=== PATIENT | female | born 1970 | race Caucasian/White ===

== ENCOUNTER 2021-06-20 11:49 | Emergency (ER) | payer OTHER ==
--- NOTE | 2021-06-20 12:07 | ERPHSYRPT ---
- History of Present Illness Time Seen by Provider: 06/20/21 12:20 Source: patient Exam Limitations: no limitations Physician History: Patient is a 50-year-old female presents to emergency department for evaluation of scratches to both hands caused by cats. 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 Injury occurred just prior to arrival. Patient has multiple superficial appearing scratches to both hands. No blunt trauma. Tetanus is up-to-date. Patient does not complain of pain. Patient is just concerned about the possibility of cat scratch disease. Symptoms are mild in intensity. No specific worsening improving factors. Patient is otherwise healthy. She voices no other complaints or concerns at this time. Occurred: just prior to arrival Method of Injury: other (Cat scratch) Quality: other Severity of Pain-Max: moderate Severity of Pain-Current: mild Extremities Pain Location: hand: left Modifying Factors: Improves With: nothing Associated Symptoms: none Allergies/Adverse Reactions: Penicillins Allergy (Verified 06/20/21 12:21) - Review of Systems Constitutional: No Symptoms, No Fever, No Chills Eyes: No Symptoms Ears, Nose, & Throat: No Symptoms Respiratory: No Symptoms, No Cough, No Dyspnea Cardiac: No Symptoms, No Chest Pain, No Edema, No Syncope Abdominal/Gastrointestinal: No Symptoms, No Abdominal Pain, No Nausea, No Vomiting, No Diarrhea Genitourinary Symptoms: No Symptoms, No Dysuria Musculoskeletal: No Symptoms, No Back Pain, No Neck Pain Skin: No Symptoms, No Rash Neurological: No Symptoms, No Dizziness, No Focal Weakness, No Sensory Changes Psychological: No Symptoms Endocrine: No Symptoms Hematologic/Lymphatic: No Symptoms Immunological/Allergic: No Symptoms All Other Systems: Reviewed and Negative - Nursing Vital Signs Nursing Vital Signs: Initial Vital Signs Temperature 97.2 F 06/20/21 12:17 Pulse Rate 96 H 06/20/21 12:17 Blood Pressure 139/94 06/20/21 12:17 O2 Sat by Pulse Oximetry 96 06/20/21 12:17 Pain Scale Pain Intensity 2 - Physical Exam General Appearance: no apparent distress, alert Eyes, Ears, Nose, Throat Exam: normal ENT inspection, TMs normal, pharynx normal, moist mucous membranes Neck Exam: normal inspection, non-tender, supple Cardiovascular/Respiratory Exam: chest non-tender, normal breath sounds, regular rate/rhythm, no respiratory distress Abdominal Exam: non-tender, No guarding Back Exam: normal inspection, No vertebral tenderness Shoulder Exam: normal inspection, non-tender Elbow/Forearm Exam: normal inspection, non-tender, no evidence of injury Wrist Exam: normal inspection, non-tender, no evidence of injury, normal ROM Hand Exam: non-tender (Multiple superficial scratches observed around the dorsum of the hands near the thumbs. No lacerations. All digits are neurovascular intact distally. Compartments are soft. Cap refill less than 2 seconds. Radial pulses palpable), No asymmetry, No nail injury, No stiffness, No swelling Neuro/Tendon Exam: normal sensation, normal motor functions, normal tendon functions Mental Status Exam: alert, oriented x 3, cooperative Skin Exam: normal color, warm, dry SpO2 Interpretation: normal SpO2: 96 O2 Delivery: Room Air - Course Nursing assessment & vital signs reviewed: Yes - Progress Progress: improved Progress Note: Patient presents to our ED with multiple superficial scratches on her hands due to a cat. Patient is allergic to penicillin. A prescription for clindamycin was forwarded to patient's pharmacy in the event she develops symptoms. Tetanus up-to-date. No indication for imaging. Patient otherwise feels well. She voices no other complaints concerns at this time. Will discharge. Patient to follow-up with primary care doctor within 48 hours for evaluation. Portions of this note were created with voice recognition technology. There may be grammatical, spelling, punctuation or sound alike errors 06/20/21 12:48 Counseled pt/family regarding: diagnosis, rad results - Departure Departure Disposition: Home Clinical Impression: Cat scratch Condition: Stable Critical Care Time: No Instructions: Wound Care (DC) Prescriptions: Clindamycin HCl 150 mg [Cleocin 150 mg Capsule] 2 cap PO QID #56 cap
[2021-06-20 12:21] VITALS: O2SAT 96
[2021-06-20 12:48] VITALS: BP 116/65; PULSE 90
== END 2021-06-20 12:48 | disposition home or self-care (01) ==
LOC: ED 11:49
DX: S60.512A Abrasion of left hand, initial encounter (principal); W55.03XA Scratched by cat, initial encounter; Y99.0 Civilian activity done for income or pay; S60.511A Abrasion of right hand, initial encounter
CPT/HCPCS: 99283